=== PATIENT | male | born 1975 | race Caucasian/White ===

== ENCOUNTER 2017-04-08 20:40 | Emergency (ER) | payer BC, OTHER ==
[2017-04-08 20:49] VITALS: BP 145/85
[2017-04-08] MEDS ORDERED: predniSONE TAB* 20 MG PO ONE (21:44)
[2017-04-08] MEDS ORDERED: Albuterol 2.5 MG/3 ML NEB.SOL* (0.083%) INH ONE (21:44)
[2017-04-08] MEDS ORDERED: Albuterol HFA INHALER* 8 gm MDI INH ONE (21:49)
--- NOTE | 2017-04-08 21:53 | UC ---
Respiratory Complaint HPI - HPI Summary HPI Summary: Started getting sick about a month ago with runny nose, congestion, and cough. Since then most symptoms have cleared up but still has congested cough that is worst in the morning. In the last couple days has been having pain behind ears when he coughs. - History of Current Complaint Hx Obtained From: Patient Onset/Duration: Gradual Onset, Lasting Weeks Timing: Constant Severity Initially: Mild Severity Currently: Moderate Character: Cough: Productive Aggravating Factors: Deep Breaths, Recumbent Position Alleviating Factors: Spontaneous Resolution Associated Signs And Symptoms: Positive: Wheezing, URI, Nasal Congestion <Faey Madrid - Last Filed: 04/08/17 21:48> <Suzy Flores - Last Filed: 04/09/17 10:06> - History of Current Complaint Chief Complaint: UCRespiratory Stated Complaint: COUGH Time Seen by Provider: 04/08/17 21:33 - Allergies/Home Medications Allergies/Adverse Reactions: Allergies Allergy/AdvReac Type Severity Reaction Status Date / Time No Known Allergies Allergy Verified 04/08/17 20:49 PMH/Surg Hx/FS Hx/Imm Hx - Additional Past Medical History Additional PMH: obesity Cardiovascular History: Hypertension - Surgical History Surgical History: Yes Surgery Procedure, Year, and Place: Gastric Bypass with reversal. KIDNEY STONE- 2013. ENDOSCOPY WITH SEDATION - Family History Known Family History: Positive: Hypertension - Social History Occupation: Employed Full-time Alcohol Use: Occasionally Substance Use Type: None Smoking Status (MU): Never Smoked Tobacco - Immunization History Most Recent Influenza Vaccination: HAS NOT HAD Most Recent Tetanus Shot: UNSURE? Most Recent Pneumonia Vaccination: HAS NOT HAD <Faye Mdarid - Last Filed: 04/08/17 21:48> Review of Systems Constitutional: Negative Skin: Negative Eyes: Negative ENT: Negative Respiratory: Shortness Of Breath, Cough Cardiovascular: Negative Gastrointestinal: Negative Genitourinary: Negative Motor: Negative Neurovascular: Negative Musculoskeletal: Negative Neurological: Negative Psychological: Negative Is Patient Immunocompromised?: No All Other Systems Reviewed And Are Negative: Yes <Faye Madrid - Last Filed: 04/08/17 21:48> Physical Exam Triage Information Reviewed: Yes Appearance: No Pain Distress, Obese Vital Signs: Initial Vital Signs Temp 98.7 F 04/08/17 20:44 Pulse 81 04/08/17 20:44 Resp 18 04/08/17 20:44 BP 145/85 04/08/17 20:44 Pulse Ox 98 04/08/17 20:44 Vital Signs Reviewed: Yes Eye Exam: Normal Eyes: Positive: Conjunctiva Clear ENT: Positive: Normal ENT inspection, Pharynx normal, Nasal congestion, TMs normal. Negative: TM bulging, TM dull, TM red Dental Exam: Normal Neck exam: Normal Neck: Positive: Supple, Nontender, No Lymphadenopathy Respiratory: Positive: Crackles, Rhonchi, Wheezing Cardiovascular Exam: Normal Cardiovascular: Positive: RRR, No Murmur Musculoskeletal Exam: Normal Neurological Exam: Normal Psychological Exam: Normal Skin Exam: Normal <Faye Madrid - Last Filed: 04/08/17 21:48> Vital Signs: Initial Vital Signs Temp 98.7 F 04/08/17 20:44 Pulse 81 04/08/17 20:44 Resp 18 04/08/17 20:44 BP 145/85 04/08/17 20:44 Pulse Ox 98 04/08/17 20:44 <Suzy Flores - Last Filed: 04/09/17 10:06> Diagnostic Evaluation - Laboratory O2 Sat by Pulse Oximetry: 98 <Faye Madrid - Last Filed: 04/08/17 21:48> Respiratory Course/Dx - Differential Dx/Diagnosis Provider Diagnoses: post-viral cough. bronchospasm <Faye Madrid - Last Filed: 04/08/17 21:48> Discharge <Faye Madrid - Last Filed: 04/08/17 21:48> <Suzy Flores - Last Filed: 04/09/17 10:06> - Discharge Plan Condition: Stable Disposition: HOME Prescriptions: Benzonatate CAP* [Tessalon 100 MG CAP*] 100 - 200 mg PO TID PRN #40 cap PRN Reason: Cough predniSONE TAB* [Deltasone TAB*] 40 mg PO DAILY #8 tab Patient Education Materials: Bronchospasm (ED) Referrals: Manny Oh MD [Primary Care Provider] - Additional Instructions: POST-VIRAL COUGH: A very common cause of persistent cough is called "post-viral cough syndrome." During a viral infection, the virus can irritate your bronchial tubes. Then even after the infection is over, you may continue to cough. Your cough is left over from your recent viral infection. You do not show evidence of a continuing viral infection,bronchitis or pneumonia. You do not need antibiotics at this time. It may be helpful to use inhaled cool mist, throat lozenges, cough medication or bronchial inhalers to open up your bronchial tubes. We expect you will be improved in a week or two. Please get back to us if you have fever, chest pain, colored sputum, blood in the sputum, wheezing or shortness of breath. Attestation Statement User Type: Provider - I was available for consult. This patient was seen by the JOSE RAMON. The patient was not presented to, seen by, or examined by me. -Michelle <Suzy Flores - Last Filed: 04/09/17 10:06>
== END 2017-04-08 22:08 | disposition home or self-care (01) ==
LOC: UCEAST 20:40
DX: J98.01 Acute bronchospasm (principal); J02.9 Acute pharyngitis, unspecified
CPT/HCPCS: 99213; A9270-GY; G0463; J7512

== ENCOUNTER 2020-07-09 08:21 | Inpatient (IN) ==
[2020-07-09] MEDS ORDERED: Albuterol HFA INHALER 8 gm MDI INH ONE ×2 (08:53→23:25)
[2020-07-09 09:24] LABS: ABS Basophils 0.1 10^3/ul (0-0.2); ABS Eosinophils 0.2 10^3/ul (0-0.6); ABS Monocytes 0.6 10^3/ul (0-0.8); Eosinophil % 3.6 %; Hematocrit 44 % (42-52); Hemoglobin 14.5 g/dL (14.0-18.0); Lymphocyte % 16.9 %; Mean Corpuscular HGB Conc 33 g/dL (31-36); Mean Corpuscular Hemoglobin 29 pg (27-31); Mean Corpuscular Volume 87 fL (80-94); Mean Platelet Volume 10.6 fL (7.4-10.4); Platelet Count 184 10^3/uL (150-450); Red Cell Distribution Width 14 % (10-15); White Blood Count 5.9 10^3/uL (3.5-10.8)
[2020-07-09 09:40] LABS: ALT 33 U/L (7-52); AST 20 U/L (13-39); Albumin 4.1 g/dL (3.2-5.2); Albumin/Globulin Ratio 1.2 (1-3); Alkaline Phosphatase 81 U/L (34-104); Anion Gap 6 mmol/L (2-11); BUN/Creatinine Ratio 21.3 (8-20); Blood Urea Nitrogen 17 mg/dL (6-24); CO2 Carbon Dioxide 27 mmol/L (22-32); Calcium 9.5 mg/dL (8.6-10.3); Chloride 107 mmol/L (101-111); EGFR African American 127.7 (>60); EGFR Non-African American 105.5 (>60); Globulin 3.3 g/dL (2-4); Glucose 96 mg/dL (70-100); Potassium 4.3 mmol/L (3.5-5.0); Sodium 140 mmol/L (135-145); Total Protein 7.4 g/dL (6.4-8.9)
[2020-07-09 09:53] LABS: Troponin I 0.03 ng/mL (<0.03)
[2020-07-09 11:35] LABS: Troponin I 0.03 ng/mL (<0.03)
[2020-07-09] MEDS ORDERED: Ondansetron 4 mg VIAL 2 MG/ML 2 ml VIAL IV PRN (12:52)
[2020-07-09] MEDS ORDERED: Iohexol 350 (CONTRAST) 500 ML MDV IV ONE (14:13)
[2020-07-09] MEDS ORDERED: Iodixanol (CONTRAST) 320 MG/ML 100 ML SDV IV ONE ×2 (14:39→16:56)
[2020-07-09] MEDS: Enoxaparin 40 MG/0.4 ML SYR SUBCUT SCH (15:17)
[2020-07-10] MEDS ORDERED: NS 0.9% 1000 ml BAG 1,000 ML IV SCH (06:00)
[2020-07-10] MEDS ORDERED: Amoxicillin/Clavul 875/125 TAB (Augmentin 875 tab) PO SCH (09:00)
[2020-07-10] MEDS ORDERED: Regadenoson 0.4 MG/5 ML SYRINGE ONE (09:11)
[2020-07-10] MEDS ORDERED: Aminophylline 25 MG/ML VIAL ONE (09:11)
[2020-07-10 09:30] LABS: BUN/Creatinine Ratio 18.4 (8-20); Calcium 9.2 mg/dL (8.6-10.3); EGFR African American 115.9 (>60); EGFR Non-African American 95.8 (>60)
[2020-07-10 10:02] LABS: TSH Ultra Thyroid Stim Horm 2.97 mcIU/mL (0.34-5.60)
[2020-07-10 10:04] LABS: Free T3 3.5 pg/mL (2.5-3.9)
[2020-07-10 10:05] LABS: Free T4 0.85 ng/dL (0.61-1.12)
[2020-07-10 10:11] LABS: Potassium 4.7 mmol/L (3.5-5.0)
[2020-07-10 10:12] LABS: Magnesium 1.7 mg/dL (1.9-2.7)
[2020-07-10] MEDS ORDERED: Magnesium Sulfate 2 gm BAG 2 GM/50 ML BAG IVPB ONE (10:41)
[2020-07-10] MEDS: Furosemide 40 mg/4 ml IV VIAL IV SCH (11:19)
[2020-07-10] MEDS: Amoxicillin/Clavul 875/125 TAB (Augmentin 875 tab) PO SCH (11:41)
[2020-07-10] MEDS ORDERED: Perflutren Lipid Microsphere 3 ML VIAL ONE (12:21)
[2020-07-10] MEDS: Enoxaparin 40 MG/0.4 ML SYR SUBCUT SCH (12:46)
[2020-07-10 15:09] LABS: C Reactive Protein 13.03 mg/L (<8.01)
[2020-07-10 16:33] LABS: Hepatitis B Surface Antigen Nonreactive (Nonreactive)
[2020-07-10 16:38] LABS: Hepatitis A Ab IgM Negative (Negative); Hepatitis B Core IgM Nonreactive (Nonreactive)
[2020-07-10 16:50] LABS: Hepatitis C Antibody Negative (Negative)
[2020-07-10 17:07] LABS: BUN/Creatinine Ratio 17.6 (8-20); EGFR Non-African American 90.9 (>60)
[2020-07-10 17:24] LABS: Calcium 9.4 mg/dL (8.6-10.3); Potassium 4.3 mmol/L (3.5-5.0)
[2020-07-11] MEDS ORDERED: NS 0.9% 1000 ml BAG 1,000 ML IV SCH (02:00)
[2020-07-11 07:24] LABS: Anion Gap 6 mmol/L (2-11); BUN/Creatinine Ratio 23.3 (8-20); Blood Urea Nitrogen 20 mg/dL (6-24); CO2 Carbon Dioxide 30 mmol/L (22-32); Calcium 9.4 mg/dL (8.6-10.3); Chloride 107 mmol/L (101-111); EGFR African American 117.4 (>60); EGFR Non-African American 97.1 (>60); Glucose 98 mg/dL (70-100); Magnesium 1.8 mg/dL (1.9-2.7); Potassium 4.1 mmol/L (3.5-5.0); Sodium 143 mmol/L (135-145)
[2020-07-11] MEDS ORDERED: Heparin 2 UNITS/ML 1000 mls 2,000 ML IV ONE (07:57)
[2020-07-11] MEDS ORDERED: VERAPAMIL 2.5 MG/ML 2 ML VIAL ** 5 mg/2 ml ONE (07:57)
[2020-07-11] MEDS ORDERED: Lidocaine 1% VIAL 10 MG/ML VIAL ONE (07:57)
[2020-07-11] MEDS ORDERED: fentaNYL 100 mcg/2 ml 50 MCG/ML VIAL ONE (07:57)
[2020-07-11] MEDS ORDERED: Midazolam 5 mg/5 ml VIAL 1 mg/ml 5 ml VIAL (5 mg) ONE (07:57)
[2020-07-11] MEDS ORDERED: nitroGLYCERIN DRIP 25,000 MCG/250 ML BTL ONE (07:57)
[2020-07-11] MEDS ORDERED: Heparin 1,000 UNIT/ML 10 ml (10,000 UNITS) CATHLAB/DIALYSIS ONE (07:57)
[2020-07-11] MEDS ORDERED: Iohexol 350 (CONTRAST) 200 ML MDV IV ONE (07:58)
[2020-07-11] MEDS ORDERED: diPHENhydraMINE 25 mg TAB PO PRN (08:01)
[2020-07-11] MEDS ORDERED: Magnesium Sulfate 2 gm BAG 2 GM/50 ML BAG IVPB ONE (08:02)
[2020-07-11 09:16] LABS: HIV 4th Generation Nonreactive (Nonreactive)
[2020-07-11] MEDS: Enoxaparin 40 MG/0.4 ML SYR SUBCUT SCH (12:55)
[2020-07-11] MEDS: Furosemide 40 mg/4 ml IV VIAL IV SCH (12:55)
[2020-07-11] MEDS: Amoxicillin/Clavul 875/125 TAB (Augmentin 875 tab) PO SCH (12:55)
[2020-07-11 15:59] VITALS: BP 137/83
[2020-07-11 17:03] LABS: % Iron Saturation 12 % (15-55); Iron 43 ug/dL (50-212); Total Iron Binding Capacity 357 mcg/dL (250-450); Transferrin 255 mg/dL (203-362); Unsaturated Iron Binding < 342 ug/dL
[2020-07-11 17:14] LABS: Ferritin 57.1 ng/mL (24-336)
[2020-07-13 15:32] LABS: TB1 Ag minus Nil Result 0.08 IU/mL; TB2 Ag minus Nil Result 0.03 IU/mL
[2020-07-13 15:53] LABS: QuantiferonTb Gold Plus Result Negative (Negative)
[2020-07-14 20:17] LABS: Anaplasma phagocytophilum Negative (Negative); B. miyamotoi PCR, B Negative (Negative); Babesia divergens/MO-1 Negative (Negative); Babesia ducani Negative (Negative); Ehrlichia chaffeensis Negative (Negative); Ehrlichia ewingii/canis Negative (Negative); Ehrlichia muris eauclairensis Negative (Negative)
== END 2020-07-11 17:44 | disposition home or self-care (01) | DRG 192 ==
LOC: MEDTELE 08:21 → ED 08:21 → OBSVTOIN 14:27 → MEDTELE 07-10 17:57
PROVIDERS: ADMIT Internal Medicine; ATTEND Internal Medicine